=== PATIENT | female | born 1990 | race Caucasian/White ===

== ENCOUNTER 2016-08-24 20:28 | Emergency (ER) | payer SELFPAY ==
[2016-08-24] MEDS ORDERED: Thiamine 100 MG, Folic Acid 1 MG, MVI, Adult with Vitamin K 10 ML in Lactated Ringers 1... IV ONE ×4 (20:34)
[2016-08-24 20:42] VITALS: BP 137/84
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
== END 2016-08-24 22:33 | disposition home or self-care (01) ==
LOC: DL.ED 20:28
DX: S02.2XXA Fracture of nasal bones, initial encounter for closed fracture (principal); T74.91XA Unspecified adult maltreatment, confirmed, initial encounter; S00.83XA Contusion of other part of head, initial encounter; F17.210 Nicotine dependence, cigarettes, uncomplicated; S20.312A Abrasion of left front wall of thorax, initial encounter; S30.810A Abrasion of lower back and pelvis, initial encounter; Y04.8XXA Assault by other bodily force, initial encounter
CPT/HCPCS: 70450; 70486; 99284